=== PATIENT | female | born 1970 | race Caucasian/White ===

== ENCOUNTER 2022-08-10 14:45 | Emergency (ER) | payer OTHER ==
[~2022-08-10] VITALS: Ht 154.9 cm; Wt 70.3 kg
[2022-08-10 15:22] VITALS: BP 142/75
--- NOTE | 2022-08-10 15:22 | NUR ---
PT CALLED TO TRIAGE, INFORMED PT AND FAMILTY OF POLICY THAT ER DOES NOT ALLOW VISITORS IN THE ER, STATED THAT THEY WOULD LEAVE, PT AMBULATED OUTSIDE OF THE ER WITH STEADY GAIT
--- NOTE | 2022-08-10 15:26 | NUR ---
PATIENT LEFT WITHOUT BEING SEEN BY DR. ALBARRAN. NO FURTHER CARE PROVIDED FOR PATIENT.
== END 2022-08-10 15:26 | disposition left against medical advice (07) ==
LOC: MED 14:45
DX: R42 Dizziness and giddiness (principal); Z53.21 Procedure and treatment not carried out due to patient leaving prior to being seen by health care provider